=== PATIENT | female | born 1970 | race Caucasian/White ===

== ENCOUNTER → 2016-11-15 | Outpatient (CLI) | payer BC ==
[2016-05-20 17:29] VITALS: BP 135/80
[~2016-11-15] MED LIST: AMOXICILLIN 8751 TAB PO; CIPRO500 M1 PO; FLAGYL500 M1 PO; MICARDIS HCT 121 TAB PO; NORCO 325 MG-51 TA1 PO; PRAVASTATIN SOD10 MG PO; PROTONIX 40MG T40 MG PO; SYNTHROID0.025 MG PO; ZOFRAN8 MG PO
== END ==
LOC: MAMMO 08:45
DX: Z12.31 Encounter for screening mammogram for malignant neoplasm of breast (principal)
CPT/HCPCS: G0202

== ENCOUNTER → 2017-11-15 | Outpatient (CLI) | payer BC ==
[2016-05-20 17:29] VITALS: BP 135/80
== END ==
LOC: MAMMO 09:07
DX: Z12.31 Encounter for screening mammogram for malignant neoplasm of breast (principal)

== ENCOUNTER 2018-01-11 08:30 | Outpatient (RCR) | payer BC ==
[2016-05-20 17:29] VITALS: BP 135/80
== END 2018-01-11 09:00 | disposition home or self-care (01) ==
LOC: PT 08:30
DX: M25.562 Pain in left knee (principal); G89.29 Other chronic pain

== ENCOUNTER 2018-09-25 16:00 | Outpatient (RCR) | payer BC ==
[2016-05-20 17:29] VITALS: BP 135/80
== END 2018-12-03 | disposition still patient (30) ==
LOC: PT
DX: R10.9 Unspecified abdominal pain (principal)

== ENCOUNTER 2019-07-08 09:00 | Outpatient (RCR) | payer BC ==
[2016-05-20 17:29] VITALS: BP 135/80
== END 2019-07-08 09:30 | disposition still patient (30) ==
LOC: PT 09:00
DX: M54.5 Low back pain (principal)
CPT/HCPCS: G0283-GP

== ENCOUNTER → 2019-10-09 | Outpatient (CLI) | payer BC ==
[2016-05-20 17:29] VITALS: BP 135/80
== END ==
LOC: MAMMO 09:09
DX: Z12.31 Encounter for screening mammogram for malignant neoplasm of breast (principal)

== ENCOUNTER → 2020-11-18 | Outpatient (CLI) | payer BC ==
[2016-05-20 17:29] VITALS: BP 135/80
[~2020-11-18] MED LIST changes: +ACETAMINOPHEN-H1 TA2 PO; +CEPHALEXIN500 M1 PO; +CLEOCIN HCL150 M1 PO; +DEXILANT60 MG PO; +HYDROCHLOROTH12.5 M1 PO; +ROBAXIN 75750 MG/TA1 PO
== END ==
LOC: MAMMO 14:26
DX: Z12.31 Encounter for screening mammogram for malignant neoplasm of breast (principal)

== ENCOUNTER 2021-06-20 07:54 | Emergency (ER) | payer BC ==
[~2021-06-20 07:54] MED LIST changes: -ACETAMINOPHEN-H1 TA2 PO; -CEPHALEXIN500 M1 PO; -CLEOCIN HCL150 M1 PO; -DEXILANT60 MG PO; -HYDROCHLOROTH12.5 M1 PO; -ROBAXIN 75750 MG/TA1 PO
[2021-06-20] MEDS ORDERED: ACETAMINOPHEN-H1 TA2 PO (08:09)
[2021-06-20] MEDS ORDERED: CEPHALEXIN500 M1 PO (08:09)
[2021-06-20] MEDS ORDERED: HYDROCHLOROTH12.5 M1 PO (08:10)
[2021-06-20] MEDS ORDERED: DEXILANT60 MG PO (08:10)
[2021-06-20] MEDS ORDERED: ROBAXIN 75750 MG/TA1 PO (08:10)
[2021-06-20] MEDS ORDERED: CLEOCIN HCL150 M1 PO (08:46)
[2021-06-20 08:57] VITALS: BP 126/65
== END 2021-06-20 08:56 | disposition home or self-care (01) ==
LOC: ED 07:54
DX: M96.842 Postprocedural seroma of a musculoskeletal structure following a musculoskeletal system procedure (principal); L50.9 Urticaria, unspecified; I10 Essential (primary) hypertension; G89.29 Other chronic pain; M54.9 Dorsalgia, unspecified; Z79.899 Other long term (current) drug therapy

== ENCOUNTER → 2021-11-12 | Outpatient (CLI) | payer BC ==
[~2021-11-12] MED LIST changes: +ACETAMINOPHEN-H1 TA2 PO; +CEPHALEXIN500 M1 PO; +CLEOCIN HCL150 M1 PO; +DEXILANT60 MG PO; +HYDROCHLOROTH12.5 M1 PO; +ROBAXIN 75750 MG/TA1 PO
== END ==
LOC: MAMMO 09:15
DX: Z12.31 Encounter for screening mammogram for malignant neoplasm of breast (principal)

== ENCOUNTER 2023-08-02 08:00 | Outpatient (RCR) | payer BC ==
[~2023-08-02 08:00] MED LIST changes: +KETOROLAC10 MG PO; +ONDANSETRON HYDR4 MG PO; +ORPHENADRINE C100 MG PO
== END 2023-08-23 | disposition home or self-care (01) ==
LOC: PT
DX: M25.511 Pain in right shoulder (principal); G89.29 Other chronic pain

== ENCOUNTER 2023-08-24 08:00 | Outpatient (RCR) | payer BC | END 2023-09-21 | disposition home or self-care (01) | LOC: PT | DX: M25.511 Pain in right shoulder (principal); G89.29 Other chronic pain ==

== ENCOUNTER → 2023-11-15 | Outpatient (CLI) | payer BC | LOC: MAMMO 14:41 | DX: Z12.31 Encounter for screening mammogram for malignant neoplasm of breast (principal) ==

== ENCOUNTER → 2024-03-26 | Outpatient (CLI) | payer BC | LOC: RAD 16:02 | DX: M54.6 Pain in thoracic spine (principal); G89.29 Other chronic pain ==